=== PATIENT | female | born 1965 | race Asian ===

== ENCOUNTER 2017-02-09 21:54 | Emergency (ER) | payer BC ==
[~2017-02-09] VITALS: Ht 170.2 cm; Wt 68.0 kg
[2017-02-09] MEDS ORDERED: VITAMIN D3400 UNI1 PO (23:14)
== END 2017-02-09 22:32 | disposition short-term general hospital (02) ==
LOC: ER 21:54
DX: S61.132A Puncture wound without foreign body of left thumb with damage to nail, initial encounter (principal); Z79.899 Other long term (current) drug therapy; W54.0XXA Bitten by dog, initial encounter